=== PATIENT | male | born 1985 | race Caucasian/White ===

== ENCOUNTER 2016-11-26 11:31 | Emergency (ER) | payer SELFPAY ==
[2016-11-26 11:41] VITALS: RESP 12; TEMP 98.2
[2016-11-26] MEDS ORDERED: Sodium Chloride 0.9% 1,000 ML PRIMARY IV ONE (11:44)
[2016-11-26] MEDS ORDERED: ONDANSETRON 4 MG/2 ML VIAL IVP ONE (11:44)
--- NOTE | 2016-11-26 11:51 | PDOC ---
Abdomen/Flank HPI - General Chief Complaint: Abdomen Pain Stated Complaint: STOMACH ACHE Date Seen by Provider: 11/26/16 Time Seen by Provider: 11:46 Source: POSITIVE: Patient Exam Limitations: POSITIVE: No limitations Nurse's Notes Reviewed & Considered: Yes - History of Present Illness Initial Comments: Patient comes in today with chief complaint of vomiting and diarrhea. She was 36 hours of increasing vomiting and diarrhea, complaining of headache, sore throat. He denies any chest pain shortness of breath or cough, no hematuria or dysuria, no rashes. 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 Body Location Affected: REPORTS: Abdomen Timing: REPORTS: Gradual, Getting Worse Duration: <1 week (36 hours.) Severity: Moderate Quality: REPORTS: Cramping, "Pain" Abdominal Pain Onset Location: REPORTS: Epigastric Abdominal Pain Radiation: REPORTS: No radiation Context: REPORTS: None Modifying Factors: improves with: Nothing Associated Symptoms: REPORTS: Diaphoresis, Nausea, Vomiting, Diarrhea Similar Symptoms Previously: No Recent Care Received: REPORTS: Denies Any Prior Injuries Related to Current Complaint?: No - Patient Home Medications Home Medications: Home Medications Ibuprofen [Motrin] 400 mg PO PRN PRN 08/23/16 - Patient Allergies Allergies/Adverse Reactions: Allergies Allergy/AdvReac Type Severity Reaction Status Date / Time Penicillins Allergy HIVES Verified 11/26/16 11:34 Past Medical History - heen HEENT History: Denies History Cardiovascular History: Denies History Respiratory History: Denies History Gastrointestinal History: Hepatitis, Other (please comment) Additional Gastrointestinal History: Pt reports is hep C positive Genitourinary History: Denies History Endocrine History: Denies History Musculoskeletal History: Back Pain, Back Injury, Other (please comment) Prosthesis or Implant: No Additional Musculoskeletal History: Pt reports chronic back pain after accident years ago Neurological History: Denies History Blood Disorders: Denies History Psychiatric History: Denies History Additional Psychiatric History: Meth addiction History of Sexually Transmitted Diseases: No Cancer History: Denies History In Past Year Been Physically Harmed or Verbally Threatened: No History of MDRO: No History of Other Communicable Diseases: No Tobacco Use: Current Every Day Smoker Alcohol Use: None Substance Use Type: None, Other (please comment) Previous Surgical History: No Anesthesia Reactions: No Malignant Hyperthermia: No Significant Family History: No pertinent family hx ROS - Limitations ROS Limitations: No Limitations Constitution: REPORTS: Diaphoresis Cardiovascular: REPORTS: Denies Cardiac Symptoms Respiratory: REPORTS: Denies Resp Symptoms Neurological: REPORTS: Headache Gastrointestinal: REPORTS: Abdominal Pain, Nausea, Vomitting, Diarrhea Endocrine: REPORTS: Denies Symptoms Musculoskeletal: REPORTS: Denies MS Symptoms Genitourinary: REPORTS: Denies Symptoms Eyes: REPORTS: Denies Symptoms ENT: REPORTS: Denies Symptoms Skin: REPORTS: Denies Skin Symptoms Lympathic: REPORTS: Denies Lympathic Symptoms Immunologic: POSITIVE: Denies Symptoms Psychiatric: POSITIVE: Denies Psych Symptoms Abdominal/Flank Pain PE - General Appearance General Appearance: POSITIVE: Alert, Cooperative, No Acute Distress, No Evidence of Trauma - HEENT HEENT: POSITIVE: Head Inspection Nml, Eyes Inspection Nml, Ears Inspection Nml, Nose Inspection Nml, PERRL, EOMI - Neck Neck: POSITIVE: Normal Inspection - Respiratory Respiratory: POSITIVE: No Respiratory Distress, Breath Sounds Normal, Chest Non- Tender - Cardiovascular Cardiovascular: POSITIVE: Regular Rate and Rhythm, Heart Sounds Normal, Equal Pulses, Strong Pulses, Tachycardia - Chest Chest: POSITIVE: Non Tender - Abdomen Abdomen: Soft: (All Quadrants), Normal Bowel Sounds: (All Quadrants), No Splenomegaly: (All Quadrants), No Hepatomegaly: (All Quadrants), No Guarding: ( All Quadrants), No Rebound: (All Quadrants), No Palpable Pulse: (All Quadrants) , No Palpabale Mass: (All Quadrants), No Distention: (All Quadrants), No Rigidity: (All Quadrants) - Skin Skin: POSITIVE: Intact, Normal For Race, Warm, Dry, No Rash - Extremities Extremity: Non-Tender: (All Extremities), Normal ROM: (All Extremities), Normal Inspection: (All Extremities) - Neurological Neurological: POSITIVE: Affect Apporpriate, Oriented X3 - Psychological Psychiatric: POSITIVE: Affect Appropriate, Mood Appropriate Abdomen Progress - Results Reviewed by me Xrays/CTs/US Reviewed by me: Yes Discussed with Radiologist: No Lab Results Reviewed: Yes Lab Results:: Laboratory Results 11/26/16 Range/Units 12:10 WBC 6.86 (4.8-10.8) 10^3/uL RBC 4.62 L (4.70-6.10) 10^6/uL Hgb 16.3 (14.0-18.0) g/dL Hct 45.7 (42.0-52.0) % MCV 98.9 H (80-90) FL MCH 35.3 H (27-31) PG MCHC 35.7 (33-37) g/dL RDW Std Deviation 45.1 (39-50) fL RDW Coeff of Yas 12.6 (11.5-14.5) % Plt Count 180 (140-350) 10*3/uL MPV 10.3 (7.4-12.2) FL Immature Gran % (Auto) 0.1 (0-5) % Neut % (Auto) 55.9 (50-80) % Lymph % (Auto) 33.1 (10-50) % [place] % (Auto) 6.9 (5-15) % Eos % (Auto) 3.1 (0-8) % Baso % (Auto) 0.9 (0-1) % Immature Gran # (Auto) 0.01 10*3/UL Neut # (Auto) 3.84 10*3/UL Lymph # (Auto) 2.27 10*3/uL [place] # (Auto) 0.47 (0.3-0.8) 10*3/UL Eos # (Auto) 0.21 10*3/UL Baso # (Auto) 0.06 10*3/UL WBC Morphology Comment Normal morphology (NORM) Plt Morphology Comment Normal morphology (NORM) RBC Morph Comment Normal morphology (NORM) Sodium 142 (135-145) meq/L Potassium 5.0 (3.8-5.2) meq/L Chloride 103 (98-112) meq/L Carbon Dioxide 26 (23-33) meq/L Anion Gap 13 (5-20) BUN 20 (7-22) mg/dL Creatinine 1.0 (0.70-1.50) mg/dL Estimated GFR > 60 (>60 ml/min/1.73m(2)) BUN/Creatinine Ratio 20.00 (6-20) Glucose 79 (78-110) mg/dL Calculated Osmolality 295.0 H (267-292) mOsm/kg Calcium 9.9 (8.7-10.7) mg/dL Magnesium 2.2 (1.6-2.4) mg/dL Total Bilirubin 0.8 (0.3-1.2) mg/dL AST 36 (21-57) IU/L ALT 32 (21-72) IU/L Alkaline Phosphatase 81 (38-126) IU/L Total Protein 8.1 H (6.1-8.0) g/dL Albumin 4.8 (3.5-4.8) g/dL Globulin 3.3 (2.50-4.10) g/dL Albumin/Globulin Ratio 1.40 (1.3-2.0) mg/g - Patient's Progress Pain Medication Addressed: POSITIVE: Not Applicable School/Work Release Addressed: POSITIVE: Yes Re-examine Time: 12:40 Status: POSITIVE: Improved MDM / ED Course: The patient was brought into the emergency Department, examined, an IV started, blood drawn and sent to the lab for studies, radiographic studies obtained. He received 1 L of normal saline, and IV Zofran. He stated he felt better and wished to be discharged. Next Laboratory findings are unremarkable, chest x-ray and abdominal series shows nonspecific bowel gas pattern with stool in the right colon, no acute cardiopulmonary decompensation. Assessment: Gastroenteritis Plan: Discharge home, clear liquids for 24 hours, advance diet slowly. He receives a prescription for Zofran. - Consult Counseled: POSITIVE: Patient, RE: Lab Results, RE: Radiology Results, RE: DX Patient Care Time - Estimated PCT Patient Care Time (In Minutes): 20 Vital Signs - Recent Vital Signs Vital Signs: Vital Signs (Last 8 hours) Temp Pulse Resp BP Pulse Ox 11/26/16 11:35 98.2 F 102 H 12 112/85 97 - VS Reviewed Vital Signs Reviewed: Yes Discharge Clinical Impression: Gastroenteritis Discharge Disposition: Discharged to Home Condition: Stable Patient Instructions Given at Discharge: Acute Nausea and Vomiting (ED)
[2016-11-26 12:19] LABS: BASOPHILS # (AUTO) 0.06 10*3/UL; BASOPHILS % (AUTO) 0.9 % (0-1); EOSINOPHILS % (AUTO) 3.1 % (0-8); HEMATOCRIT 45.7 % (42.0-52.0); HEMOGLOBIN 16.3 g/dL (14.0-18.0); IMM GRAN % (AUTO) 0.1 % (0-5); IMM GRAN# (AUTO) 0.01 10*3/UL; LYMPHOCYTES # (AUTO) 2.27 10*3/uL; LYMPHOCYTES % (AUTO) 33.1 % (10-50); MEAN CORPUSCULAR HEMOGLOBIN 35.3 PG (27-31); MEAN CORPUSCULAR HGB CONC 35.7 g/dL (33-37); MEAN PLATELET VOLUME 10.3 FL (7.4-12.2); MONOCYTES # (AUTO) 0.47 10*3/UL (0.3-0.8); MONOCYTES % (AUTO) 6.9 % (5-15); NEUTROPHILS # (AUTO) 3.84 10*3/UL; NEUTROPHILS % (AUTO) 55.9 % (50-80); RDW COEFFICIENT OF VARIATION 12.6 % (11.5-14.5); RED BLOOD COUNT 4.62 10^6/uL (4.70-6.10); WHITE BLOOD COUNT 6.86 10^3/uL (4.8-10.8)
[2016-11-26 12:23] LABS: PLATELET MORPHOLOGY COMMENT NORMAL MORPHOLOGY (NORM)
[2016-11-26 12:26] LABS: ASPARTATE AMINO TRANSFERASE 36 IU/L (21-57); BILIRUBIN,TOTAL 0.8 mg/dL (0.3-1.2); BLOOD UREA NITROGEN 20 mg/dL (7-22); CALCIUM 9.9 mg/dL (8.7-10.7); CHLORIDE 103 meq/L (98-112); EST GLOMERULAR FILTRATION > 60 (>60 ml/min/1.73m(2)); GLUCOSE 79 mg/dL (78-110); MAGNESIUM 2.2 mg/dL (1.6-2.4); SODIUM 142 meq/L (135-145); TOTAL PROTEIN 8.1 g/dL (6.1-8.0)
--- NOTE | 2016-11-27 08:09 | DI ---
CHEST X-RAY WITH ABDOMINAL SERIES, 11/26/2016 11:44 AM : Clinical History: Vomiting. The patient also indicated he was experiencing diarrhea. PA CHEST X-RAY: Previous Exam: 04/21/2014. There is no acute soft tissue or bony abnormality. There is no free air under the diaphragms. Heart s ize is normal. Lungs are clear. Mediastinal structures are normal. There are no pulmonary nodules. Reading: Normal PA chest x-ray. ABDOMINAL SERIES: KUB and upright abdomen films are submitted. There are no soft tissue or bony abnormalities. Bowel ga s pattern, psoas margins, and flank stripes are normal. There is no free air or fluid. There are no a bnormal radiodensities. Reading: Normal abdominal series.
== END 2016-11-26 12:55 | disposition home or self-care (01) ==
LOC: ER 11:31
DX: K52.9 Noninfective gastroenteritis and colitis, unspecified (principal); R19.7 Diarrhea, unspecified; R51 Headache; J02.9 Acute pharyngitis, unspecified; R10.13 Epigastric pain; F17.210 Nicotine dependence, cigarettes, uncomplicated
CPT/HCPCS: 74022; 80053; 83735; 85025; 96361; 96374; 99283; J2405; J7030

== ENCOUNTER 2017-01-20 15:51 | Emergency (ER) | payer SELFPAY ==
[2017-01-20 16:05] VITALS: RESP 18; TEMP 98.3
[2017-01-20] MEDS ORDERED: CLINDAMYCIN 150 MG CAPSULE PO ONE (16:06)
[2017-01-20] MEDS ORDERED: IBUPROFEN 800 MG TABLET PO ONE (16:06)
--- NOTE | 2017-01-20 16:09 | PDOC ---
Sore Throat/Dental Pain HPI - General Chief Complaint: Nasal/Mouth Problem /Injury Stated Complaint: Tooth pain/ jaw pain Date Seen by Provider: 01/20/17 Time Seen by Provider: 16:06 Source: POSITIVE: Patient Exam Limitations: POSITIVE: No limitations Nurse's Notes Reviewed & Considered: Yes - History of Present Illness Initial Comments: Patient brought from intermediate with complaints of left upper dental pain. Patient with left upper dental pain has been escalating over the last 3 days with swelling over the gumline involving his central incisor lateraled his first premolar. He has very poor dentition. He denies any fever chills or sweats. No nausea vomiting or diarrhea. He does have allergies to penicillin. Location: Dental (Upper) Timing: REPORTS: Constant Duration: Unknown Severity: Moderate Quality: REPORTS: "Pain", Throbbing Context: REPORTS: Other (Dental caries) Associated Symptoms: REPORTS: Toothache Similar Symptoms Previously: Yes Recently seen/treated/hospitalized: No Any Prior Injuries Related to Current Complaint?: No - Patient Home Medications Home Medications: Home Medications NK [No Home Medications Reported] 01/20/17 - Patient Allergies Allergies/Adverse Reactions: Allergies Allergy/AdvReac Type Severity Reaction Status Date / Time Penicillins Allergy HIVES Verified 01/20/17 15:55 Past Medical History - heen HEENT History: Denies History Cardiovascular History: Denies History Respiratory History: Denies History Gastrointestinal History: Hepatitis, Other (please comment) Additional Gastrointestinal History: Pt reports is hep C positive Genitourinary History: Denies History Endocrine History: Denies History Musculoskeletal History: Back Pain, Back Injury, Other (please comment) Prosthesis or Implant: No Additional Musculoskeletal History: Pt reports chronic back pain after accident years ago Neurological History: Denies History Blood Disorders: Denies History Psychiatric History: Denies History Additional Psychiatric History: Meth addiction History of Sexually Transmitted Diseases: No Cancer History: Denies History History of MDRO: No History of Other Communicable Diseases: No Alcohol Use: None Substance Use Type: None, Other (please comment) Previous Surgical History: No Anesthesia Reactions: No Malignant Hyperthermia: No Significant Family History: No pertinent family hx ROS - Limitations ROS Limitations: No Limitations Constitution: REPORTS: Denies Symptoms Cardiovascular: REPORTS: Denies Cardiac Symptoms Respiratory: REPORTS: Denies Resp Symptoms Neurological: REPORTS: Denies Neuro Symptoms Gastrointestinal: REPORTS: Denies GI Symptoms Endocrine: REPORTS: Denies Symptoms Musculoskeletal: REPORTS: Denies MS Symptoms Genitourinary: REPORTS: Denies Symptoms Eyes: REPORTS: Denies Symptoms ENT: REPORTS: Dental Pain Skin: REPORTS: Denies Skin Symptoms Lympathic: REPORTS: Denies Lympathic Symptoms Immunologic: POSITIVE: Denies Symptoms Psychiatric: POSITIVE: Denies Psych Symptoms Sore Throat/Dental Pain Exam - General Appearance General Appearance: REPORTS: Alert, Cooperative, No Evidence of Trauma, Mild Distress - HEENT Head / Face: POSITIVE: Atraumatic, Normal Inspection, Facial Swelling (Over the upper incisor.) Eyes: POSITIVE: Inspection Normal, PERRL, EOM's Intact, Eyelids Uninjured Ears: POSITIVE: Ears Normal Inspection, Auricle Normal Nose: POSITIVE: Inspection Normal, No Apparent Trauma, Nares Normal, No CSF Leak Oropharynx: POSITIVE: External Inspection Nml, Pharynx Inspect. Nml, Airway Intact, Voice Normal, Moist Mucous Membranes, No Oral Injury, Lips Normal, Gums Normal, No Drooling Neck: POSITIVE: Supple, Normal Inspection Dental: POSITIVE: Dental Caries, Dental Tenderness - Respiratory Respiratory: REPORTS: No Respiratory Distress Sore Throat/Dental Progress - Patient's Progress Pain Medication Addressed: POSITIVE: Yes Status: POSITIVE: Improved MDM / ED Course: Patient was evaluated. He received oral clindamycin and oral ibuprofen. He is discharged home with a prescription for clindamycin and instructions for ibuprofen. Follow up with a dentist [facility]. - Consult Counseled: POSITIVE: Patient, RE: DX, RE: Need for F/U Patient Care Time - Estimated PCT Patient Care Time (In Minutes): 15 Vital Signs - VS Reviewed Vital Signs Reviewed: Yes Discharge Clinical Impression: Toothache Discharge Disposition: Discharged to Home Condition: Stable Patient Instructions Given at Discharge: Toothache (ED)
== END 2017-01-20 16:15 ==
LOC: ER 15:51
DX: K08.89 Other specified disorders of teeth and supporting structures (principal)
CPT/HCPCS: 99282